=== PATIENT | male | born 1995 | race African-American/Black ===

== ENCOUNTER 2024-09-11 14:50 | Emergency (ER) | payer MEDICAID, MEDICARE ==
[~2024-09-11] VITALS: Ht 175.3 cm; Wt 75.0 kg
[2024-09-11 14:54] VITALS: BP 154/99; PULSE 113; RESP 16; TEMP 98.8; O2SAT 98
[2024-09-11 15:44] LABS: BASOPHILS % 0.4 % (0.0-2.0); EOSINOPHILS % 0.7 % (0.0-5.0); HEMATOCRIT. 35.7 % (42.0-52.0); HEMOGLOBIN. 11.7 g/dL (14.0-18.0); MEAN CORPUSCULAR HEMOGLOBIN 26.6 pg (28.0-32.0); MEAN CORPUSCULAR HGB CONC 32.8 g/dL (31.0-37.0); MEAN PLATELET VOLUME 6.9 fl (7.4-10.4); MONOCYTES % 9.4 % (2.0-8.0); NEUTROPHILS % 72.5 % (40.0-76.0); PLATELET 744 x1000/uL (130-400); RED BLOOD CELL COUNT 4.41 mill/uL (4.7-6.1); RED CELL DISTRIBUTION WIDTH 17.3 % (11.6-14.6); WHITE BLOOD COUNT 9.4 x1000/uL (4.5-11.0)
[2024-09-11] MEDS: ACETAMINOPHEN 325MG TABLET PO STA (15:50)
[2024-09-11] MEDS: MAGNESIUM/ALUMINUM HYDROXIDE/SIMETHICONE 30ML UDC PO STA (15:50)
[2024-09-11] MEDS: ONDANSETRON 4MG ODT PO STA (15:50)
[2024-09-11 15:51] LABS: CHLORIDE 96 mEq/L (98-107); POTASSIUM 4.5 mEq/L (3.5-5.1); SODIUM 135 mEq/L (136-145)
[2024-09-11 15:52] LABS: CALCIUM 10.4 mg/dL (8.7-10.4); CARBON DIOXIDE 28 mEq/L (21-32)
[2024-09-11 15:57] LABS: CREATININE 1.1 mg/dL (0.6-1.3); GLUCOSE 127 mg/dL (70-105)
[2024-09-11 15:58] LABS: UREA NITROGEN BLOOD 35 mg/dL (9-23)
[2024-09-11 15:59] LABS: ALANINE AMINOTRANSFERASE 14 IU/L (10-49); ALBUMIN 5.1 g/dL (3.2-4.8); ASPARTATE AMINOTRANSFERASE 11 IU/L (<34); BILIRUBIN DIRECT 0.1 mg/dL (<=3.0)
[2024-09-11 16:00] LABS: BILIRUBIN TOTAL 0.4 mg/dL (0.1-1.0); PROTEIN TOTAL 7.7 g/dL (6.0-8.3)
[2024-09-11] MEDS ORDERED: ONDA-239 PO (16:43)
== END 2024-09-11 17:04 | disposition home or self-care (01) ==
LOC: ER 14:50
DX: K29.70 Gastritis, unspecified, without bleeding (principal)
CPT/HCPCS: 99284; 80076; 80048; 83690; 85025; 36415; Q0162